=== PATIENT | male | born 1965 | race Caucasian/White ===

== ENCOUNTER 2021-07-04 08:19 | Day surgery (SDC) | payer BC, MEDICAID ==
[~2021-07-04 08:19] MED LIST: Sodium Chloride 0.9% 10 ML Syringe FLUSH PRN
[2021-07-04] MEDS ORDERED: Midazolam 1 MG/ML 2 ML SDV IV ONE (08:20)
[2021-07-04] MEDS: Lactated Ringers 1,000 ML IV SCH (09:00)
[2021-07-04] MEDS ORDERED: Propofol 200 MG/20 ML SDV ONE (09:11)
[2021-07-04] MEDS ORDERED: Midazolam 1 MG/ML 2 ML SDV ONE ×2 (09:11→10:44)
[2021-07-04] MEDS ORDERED: Albuterol/Ipratropium 3.0-0.5 MG/3 ML Neb Soln ONE (09:59)
[2021-07-04] MEDS: Albuterol/Ipratropium 3.0-0.5 MG/3 ML Neb Soln NEB ONE (10:06)
[2021-07-04] MEDS ORDERED: Lidocaine 2% 100 MG/5 ML Syringe ONE (10:27)
[2021-07-04] MEDS ORDERED: EPINEPHrine 1:10,000 1 MG/10 ML Syringe ONE (10:42)
[2021-07-04] MEDS: EPINEPHrine 1:10,000 1 MG/10 ML Syringe IV ONE (10:45)
--- NOTE | 2021-07-04 10:52 | PCM.OPNOTE ---
- General Post-Op/Procedure Note Date of Surgery/Procedure: 07/04/21 Operative Procedure(s): Upper gastrointestinal endoscopy and biopsies. Findings: Patient has evidence of reflux esophagitis with gastric mucosa progressing towards the gastroesophageal junction in three areas. Biopsies were taken from this area. In addition patient has a small prepyloric ulcer. Biopsy was taken from the edge of this ulcer. Post-Op Diagnosis: Patient has evidence of reflux esophagitis rule out Caban's esophagitis, small prepyloric gastric ulcer. Anesthesia Technique: MAC Primary Surgeon: Dane Betts Complications: None Condition: Good Free Text/Narrative:: INFORMED CONSENT: Patient is here today for elective upper GI endoscopy. All aspects of this procedure have been discussed with the patient. All possible complications also, including possibility of perforation, infection, pain, bleeding, numbness of the throat, swallowing difficulty and unknown complications. In the event of perforation the patient may need surgical exploration to repair the defect. The patient understands fully well. Patient did not have any further questions for me at the end of my interview. The patient wishes for me to proceed. INSTRUMENT USED: Video gastroscope, indication for procedure is persistent epigastric and upper abdominal discomfort. Slight dysphagia at the manubrium. Symptoms of reflux esophagitis not relieved by antacids. ANESTHESIA: [MAC] ASA CLASSIFICATION: [Two] PROCEDURE PERFORMED: [Upper GI endoscopy with biopsies] PHARYNX: Normal. ESOPHAGUS: Normal. Proximal: Normal. Middle: Normal. Lower: Normal. GE Junction: 30 cm from the oral margin was the gastroesophageal junction. Diaphragmatic pinch was 5 cm below this area. Evidence for moderate reflux esophagitis. Gastric mucosa was seen to be progressing towards the esophagus in three areas. These were taken from these areas. Pictures were taken STOMACH: Normal. Cardia: Normal. Fundus: Normal. Lesser Curvature: Normal. Greater Curvature: Normal. Antrum: Normal. Pylorus: Small prepyloric ulcer and superficial was noted. Biopsy was taken from the edge of the ulcer.. DUODENUM: Normal. First Part: Normal. Second Part: Normal. Third Part: Normal. RETROFLEXION: Normal. BIOPSY: From the prepyloric ulcer as well as the gastroesophageal junction.. TOLERANCE: Excellent. COMPLICATIONS: None. Postoperative diagnosis: Moderate severe endings of reflux esophagitis, 5 cm hiatal hernia without inflammation, small prepyloric gastric ulcer.
[2021-07-04 15:45] VITALS: BP 118/76
[2021-07-04 15:46] VITALS: PULSE 92
== END 2021-07-04 12:35 | disposition home or self-care (01) ==
LOC: KA.SDS 08:19
PROVIDERS: ATTEND Family Medicine
DX: K21.00 Gastro-esophageal reflux disease with esophagitis, without bleeding (principal); K44.9 Diaphragmatic hernia without obstruction or gangrene; K25.9 Gastric ulcer, unspecified as acute or chronic, without hemorrhage or perforation; K22.8 Other specified diseases of esophagus; K31.89 Other diseases of stomach and duodenum; K29.50 Unspecified chronic gastritis without bleeding; M25.571 Pain in right ankle and joints of right foot; J45.40 Moderate persistent asthma, uncomplicated; E78.00 Pure hypercholesterolemia, unspecified; E78.5 Hyperlipidemia, unspecified; E66.9 Obesity, unspecified; Z68.38 Body mass index [BMI] 38.0-38.9, adult; Z87.891 Personal history of nicotine dependence
CPT/HCPCS: 00731; 94640; J0171; J2250; J2704; J7120; J7620-GY

== ENCOUNTER 2021-12-16 12:29 | Emergency (ER) | payer MEDICAID ==
[2021-12-16 12:40] VITALS: BP 173/108; PULSE 84
[2021-12-16] MEDS: Amoxicillin 500 MG Cap PO ONE (12:53)
[2021-12-16] MEDS: Ketorolac 60 MG/2 ML SDV IM ONE (12:54)
== END 2021-12-16 13:00 | disposition home or self-care (01) ==
LOC: KA.ED 12:29
DX: K02.9 Dental caries, unspecified (principal); E78.00 Pure hypercholesterolemia, unspecified; J44.9 Chronic obstructive pulmonary disease, unspecified; E66.9 Obesity, unspecified; Z68.35 Body mass index [BMI] 35.0-35.9, adult; Z88.8 Allergy status to other drugs, medicaments and biological substances; Z79.899 Other long term (current) drug therapy
CPT/HCPCS: 96372; 99282; 99283; A9270-GY; J1885

== ENCOUNTER 2021-12-24 07:53 | Day surgery (SDC) | payer MEDICAID ==
[2021-12-24] MEDS ORDERED: Sodium Chloride 0.9% 10 ML Syringe FLUSH PRN (08:00)
[2021-12-24] MEDS: Lactated Ringers 1,000 ML IV SCH (08:18)
[2021-12-24] MEDS: Albuterol/Ipratropium 3.0-0.5 MG/3 ML Neb Soln NEB ONE (08:45)
[2021-12-24] MEDS ORDERED: Midazolam 1 MG/ML 2 ML SDV ONE (08:48)
[2021-12-24] MEDS ORDERED: Glycopyrrolate 0.2 MG/ML SDV ONE (08:49)
[2021-12-24] MEDS ORDERED: Propofol 200 MG/20 ML SDV ONE (08:49)
[2021-12-24] MEDS ORDERED: Lidocaine 2% 5 ML SDV ONE (08:49)
[2021-12-24 10:40] VITALS: BP 134/80; PULSE 90
== END 2021-12-24 10:30 | disposition home or self-care (01) ==
LOC: KA.SDS 07:53
PROVIDERS: ATTEND Family Medicine
DX: K29.50 Unspecified chronic gastritis without bleeding (principal); K21.00 Gastro-esophageal reflux disease with esophagitis, without bleeding; F41.1 Generalized anxiety disorder; F33.1 Major depressive disorder, recurrent, moderate; E78.00 Pure hypercholesterolemia, unspecified; J45.40 Moderate persistent asthma, uncomplicated; E66.09 Other obesity due to excess calories; M67.432 Ganglion, left wrist; Z20.822 Contact with and (suspected) exposure to COVID-19; F31.81 Bipolar II disorder; Z79.899 Other long term (current) drug therapy; Z80.0 Family history of malignant neoplasm of digestive organs; Z88.8 Allergy status to other drugs, medicaments and biological substances; Z68.37 Body mass index [BMI] 37.0-37.9, adult
CPT/HCPCS: 00731; 94640; J2250; J2704; J3490; J7120; J7620-GY

== ENCOUNTER 2022-03-15 10:21 | Inpatient (IN) | payer MEDICAID ==
[2022-03-15] MEDS ORDERED: Sodium Chloride 0.9% 1,000 ML IV ONE (10:39)
[2022-03-15 11:10] LABS: ANION GAP 12.8 mmol/L (5-15); CHLORIDE,CL 98 mmol/L (98-107); SODIUM,NA 131 mmol/L (136-145)
[2022-03-15] MEDS ORDERED: Iopamidol 755 Mg/ML 100 ML Bottle IV ONE (11:35)
[2022-03-15] MEDS ORDERED: Sodium Chloride 0.9% 50 ML IV SCH (11:45)
[2022-03-15] MEDS ORDERED: Ciprofloxacin in D5W 400 MG in Premix Bag 1 BAG IV ONE ×2 (12:59)
[2022-03-15] MEDS ORDERED: metroNIDAZOLE/Normal Saline 500 MG in Premix Bag 1 BAG IV ONE (12:59)
[2022-03-15] MEDS: Sodium Chloride 0.9% 1,000 ML IV SCH (13:13)
[2022-03-15] MEDS ORDERED: Ondansetron 4 MG Tab.DIS PO PRN (16:02)
[2022-03-15] MEDS: metroNIDAZOLE/Normal Saline 500 MG in Premix Bag 1 BAG IV SCH (20:16)
[2022-03-15] MEDS: Acetaminophen 325 MG Tab PO PRN (20:20)
[2022-03-15] MEDS: Ciprofloxacin in D5W 400 MG in Premix Bag 1 BAG IV SCH ×2 (21:49)
[2022-03-16] MEDS: Sodium Chloride 0.9% 1,000 ML IV SCH ×2 (02:36→16:43)
[2022-03-16] MEDS: metroNIDAZOLE/Normal Saline 500 MG in Premix Bag 1 BAG IV SCH ×3 (05:19→20:13)
[2022-03-16] MEDS: Pantoprazole 40 MG Tab.CR PO SCH ×2 (06:23→06:31)
[2022-03-16] MEDS: Venlafaxine 150 MG Cap.ER PO SCH (08:08)
[2022-03-16 08:20] LABS: ANION GAP 11.7 mmol/L (5-15); CHLORIDE,CL 104 mmol/L (98-107); SODIUM,NA 137 mmol/L (136-145)
[2022-03-16] MEDS: Ciprofloxacin in D5W 400 MG in Premix Bag 1 BAG IV SCH ×4 (10:11→21:18)
[2022-03-16] MEDS: Loratadine 10 MG Tab PO SCH (12:31)
[2022-03-17] MEDS: Acetaminophen 325 MG Tab PO PRN (02:08)
[2022-03-17] MEDS: metroNIDAZOLE/Normal Saline 500 MG in Premix Bag 1 BAG IV SCH ×3 (04:45→20:00)
[2022-03-17] MEDS: Sodium Chloride 0.9% 1,000 ML IV SCH (04:46)
[2022-03-17] MEDS: Pantoprazole 40 MG Tab.CR PO SCH ×2 (06:18→06:30)
[2022-03-17 07:32] LABS: ANION GAP 9.4 mmol/L (5-15); CHLORIDE,CL 105 mmol/L (98-107); SODIUM,NA 137 mmol/L (136-145)
[2022-03-17] MEDS: Loratadine 10 MG Tab PO SCH (08:32)
[2022-03-17] MEDS: Venlafaxine 150 MG Cap.ER PO SCH (08:32)
[2022-03-17] MEDS ORDERED: Sodium Chloride 0.9% 1,000 ML IV SCH (09:30)
[2022-03-17] MEDS: Ciprofloxacin in D5W 400 MG in Premix Bag 1 BAG IV SCH ×4 (09:54→21:04)
[2022-03-18] MEDS: metroNIDAZOLE/Normal Saline 500 MG in Premix Bag 1 BAG IV SCH (05:00)
[2022-03-18] MEDS: Pantoprazole 40 MG Tab.CR PO SCH ×2 (06:20→06:33)
[2022-03-18 07:52] LABS: ANION GAP 9.6 mmol/L (5-15); CHLORIDE,CL 105 mmol/L (98-107); SODIUM,NA 137 mmol/L (136-145)
[2022-03-18] MEDS: Ciprofloxacin in D5W 400 MG in Premix Bag 1 BAG IV SCH ×4 (09:44→21:04)
[2022-03-18] MEDS: Venlafaxine 150 MG Cap.ER PO SCH (09:45)
[2022-03-18] MEDS: Loratadine 10 MG Tab PO SCH (09:45)
[2022-03-18] MEDS: [UNRECOGNIZED DRUG - OTHER] PO SCH (09:46)
[2022-03-19] MEDS: Pantoprazole 40 MG Tab.CR PO SCH ×2 (05:28→06:30)
[2022-03-19 05:46] VITALS: BP 132/84; PULSE 73
[2022-03-19 07:59] LABS: ANION GAP 10.6 mmol/L (5-15); CHLORIDE,CL 106 mmol/L (98-107); SODIUM,NA 141 mmol/L (136-145)
[2022-03-19] MEDS: Loratadine 10 MG Tab PO SCH (09:05)
[2022-03-19] MEDS: [UNRECOGNIZED DRUG - OTHER] PO SCH (09:05)
[2022-03-19] MEDS: Venlafaxine 150 MG Cap.ER PO SCH (09:05)
[2022-03-19] MEDS: Ciprofloxacin in D5W 400 MG in Premix Bag 1 BAG IV SCH ×2 (09:05)
[2022-03-19] MEDS ORDERED: Azithromycin 250 MG Tab PO SCH (10:00)
[2022-03-20] MEDS ORDERED: Ferrous Sulfate 325 MG Tab PO SCH (08:00)
== END 2022-03-19 13:40 | disposition home or self-care (01) | DRG 373 ==
LOC: KA.ED 10:21 → KA.MS 13:08
PROVIDERS: ADMIT Nurse Practitioner Family; ATTEND Student in an Organized Health Care Education/Training Program
DX: A04.5 Campylobacter enteritis (principal); E88.09 Other disorders of plasma-protein metabolism, not elsewhere classified; D50.9 Iron deficiency anemia, unspecified; J45.909 Unspecified asthma, uncomplicated; F41.9 Anxiety disorder, unspecified; F32.A Depression, unspecified; K21.9 Gastro-esophageal reflux disease without esophagitis; K22.70 Barrett's esophagus without dysplasia; E78.00 Pure hypercholesterolemia, unspecified; M54.9 Dorsalgia, unspecified; E66.9 Obesity, unspecified; R71.8 Other abnormality of red blood cells; I10 Essential (primary) hypertension; G89.29 Other chronic pain; Z68.37 Body mass index [BMI] 37.0-37.9, adult; Z88.8 Allergy status to other drugs, medicaments and biological substances; Z90.49 Acquired absence of other specified parts of digestive tract
CPT/HCPCS: 36415; 74177; 80053; 81001; 82728; 83540; 83550; 83605; 83690; 84443; 85025; 86140; 87045; 87046; 87324; 87328; 87329; 87449; 87899; 99284; 99285-25; A9270-GY; J0744; J3490; J7030; Q9967

== ENCOUNTER 2022-12-29 14:44 | Emergency (ER) | payer MEDICAID ==
[2022-12-29 14:59] VITALS: BP 160/102; PULSE 96
[2022-12-29] MEDS: Amoxicillin/Clavulanate K 875-125 MG Tab PO ONE (15:12)
[2022-12-29] MEDS: Hydrocortisone/Neomycin/Polymyxin B Otic Susp 10 ML Bottle EARBOTH SCH (15:13)
== END 2022-12-29 15:25 | disposition home or self-care (01) ==
LOC: KA.ED 14:44
DX: H66.92 Otitis media, unspecified, left ear (principal); H72.92 Unspecified perforation of tympanic membrane, left ear; J44.9 Chronic obstructive pulmonary disease, unspecified; E78.00 Pure hypercholesterolemia, unspecified; I10 Essential (primary) hypertension; K21.9 Gastro-esophageal reflux disease without esophagitis; E66.9 Obesity, unspecified; Z68.38 Body mass index [BMI] 38.0-38.9, adult; Z88.8 Allergy status to other drugs, medicaments and biological substances; Z79.899 Other long term (current) drug therapy; Z87.891 Personal history of nicotine dependence
CPT/HCPCS: 99282; 99283; A9270-GY

== ENCOUNTER 2023-02-12 19:01 | Emergency (ER) | payer MEDICAID ==
[2023-02-12] MEDS: Lidocaine 2% with EPINEPHrine 1:200,000 20 ML SDV INJECT ONE (19:14)
[2023-02-12 22:42] VITALS: BP 135/90; PULSE 98
== END 2023-02-12 20:07 | disposition home or self-care (01) ==
LOC: KA.ED 19:01
DX: S01.81XA Laceration without foreign body of other part of head, initial encounter (principal); I10 Essential (primary) hypertension; J44.9 Chronic obstructive pulmonary disease, unspecified; E66.9 Obesity, unspecified; Z68.39 Body mass index [BMI] 39.0-39.9, adult; K21.9 Gastro-esophageal reflux disease without esophagitis; W55.22XA Struck by cow, initial encounter; Y92.89 Other specified places as the place of occurrence of the external cause; Z79.899 Other long term (current) drug therapy; Z88.8 Allergy status to other drugs, medicaments and biological substances
CPT/HCPCS: 12013; 99282; 99283; J3490